=== PATIENT | male | born 1975 | race Caucasian/White ===

== ENCOUNTER 2016-10-21 02:40 | Emergency (ER) | payer MEDICAID ==
[~2016-10-21] VITALS: Ht 175.3 cm; Wt 62.9 kg
[~2016-10-21 02:40] MED LIST: CLON0.5T PO
[2016-10-21 02:41] VITALS: BP 118/84
[2016-10-21] MEDS ORDERED: DIPH,PERTUSS(ACELL),TET VAC/PF 0.5 ML IM-VACC PRN (04:00)
== END 2016-10-21 04:29 | disposition home or self-care (01) ==
LOC: ED 04:22
DX: M79.5 Residual foreign body in soft tissue (principal); F11.20 Opioid dependence, uncomplicated
CPT/HCPCS: 99284

== ENCOUNTER 2016-12-24 14:17 | Emergency (ER) | payer MEDICAID ==
[~2016-12-24] VITALS: Ht 172.7 cm; Wt 62.0 kg
[2016-12-24] MEDS ORDERED: LIDOCAINE 1%, 20ML ONE (15:17)
[2016-12-24] MEDS ORDERED: LIDOCAINE 1%, 20ML SQ ONE (15:30)
[2016-12-24 15:48] VITALS: BP 125/90
== END 2016-12-24 15:51 | disposition home or self-care (01) ==
LOC: ED 15:46
DX: L02.31 Cutaneous abscess of buttock (principal)
CPT/HCPCS: 10060

== ENCOUNTER 2016-12-26 16:30 | Emergency (ER) | payer MEDICAID ==
[~2016-12-26] VITALS: Ht 152.4 cm; Wt 63.4 kg
[2016-12-26 16:33] VITALS: BP 121/79
[2016-12-26] MEDS ORDERED: HYDROcodone/APAP 5/325 TABLET ONE (17:00)
[2016-12-26] MEDS ORDERED: HYDROcodone/APAP 5/325 TABLET PO ONE (17:00)
[2016-12-26 17:18] LABS: HEMATOCRIT 38.5 % (39.2-51.8); HEMOGLOBIN 12.8 g/dL (13.7-18.0); WHITE BLOOD COUNT 6.7 x10^3/uL (3.4-10)
[2016-12-26 17:24] LABS: BLOOD UREA NITROGEN 20 mg/dL (7-18)
== END 2016-12-26 18:07 | disposition home or self-care (01) ==
LOC: ED 17:06
DX: L03.317 Cellulitis of buttock (principal)
CPT/HCPCS: 36415; 80048; 82040; 85025; 99284

== ENCOUNTER 2016-12-27 15:31 | Emergency (ER) | payer MEDICAID ==
[~2016-12-27] VITALS: Ht 175.3 cm; Wt 64.6 kg
[2016-12-27 15:34] VITALS: BP 118/72
== END 2016-12-27 16:12 | disposition home or self-care (01) ==
LOC: ED 16:00
DX: L03.317 Cellulitis of buttock (principal)
CPT/HCPCS: 99281

== ENCOUNTER 2016-12-29 19:32 | Emergency (ER) | payer MEDICAID | END 2016-12-29 19:58 | disposition left against medical advice (07) | LOC: ED 19:52 | DX: Z53.21 Procedure and treatment not carried out due to patient leaving prior to being seen by health care provider (principal) ==

== ENCOUNTER 2017-01-05 00:18 | Emergency (ER) | payer MEDICAID ==
[~2017-01-05] VITALS: Ht 172.7 cm; Wt 63.6 kg
[2017-01-05 00:24] VITALS: BP 118/80
== END 2017-01-05 00:58 | disposition home or self-care (01) ==
LOC: ED 00:48
DX: L03.317 Cellulitis of buttock (principal); L02.31 Cutaneous abscess of buttock
CPT/HCPCS: 99282

== ENCOUNTER 2017-01-19 02:59 | Emergency (ER) | payer MEDICAID ==
[~2017-01-19] VITALS: Ht 175.3 cm; Wt 61.7 kg
[2017-01-19 03:01] VITALS: BP 130/90
== END 2017-01-19 04:18 | disposition home or self-care (01) ==
LOC: ED 04:09
DX: J34.0 Abscess, furuncle and carbuncle of nose (principal); L02.01 Cutaneous abscess of face
CPT/HCPCS: 99283

== ENCOUNTER 2017-03-22 21:00 | Emergency (ER) | payer MEDICAID ==
[~2017-03-22] VITALS: Ht 175.3 cm; Wt 60.9 kg
[2017-03-22 21:01] VITALS: BP 132/92
[2017-03-22] MEDS ORDERED: IBUPROFEN 200 MG TABLET ONE (21:39)
[2017-03-22] MEDS ORDERED: IBUPROFEN 200 MG TABLET PO ONE (22:00)
== END 2017-03-22 21:53 | disposition home or self-care (01) ==
LOC: ED 21:39
DX: L02.01 Cutaneous abscess of face (principal); F11.10 Opioid abuse, uncomplicated
CPT/HCPCS: 10160